=== PATIENT | male | born 1995 | race Caucasian/White ===

== ENCOUNTER 2023-08-06 23:42 | Emergency (ER) | payer OTHER, SELFPAY ==
[2023-08-06 23:57] VITALS: BP 129/74; PULSE 56; RESP 16; TEMP 36.7; O2SAT 99
[2023-08-07 00:13] VITALS: BMI 32.0
[2023-08-07 00:35] LABS: COVID-19 Test Negative (Negative); IDNOW Serial# 08D9AD1C
[2023-08-07 00:36] LABS: IDNOW Serial# 152EDE1D; Influenza A Negative (Negative); Influenza B2 Negative (Negative)
[2023-08-07 01:38] VITALS: PULSE 56; RESP 16; O2SAT 99
[2023-08-07] MEDS: Albuterol Sulfate 90 MCG 8 GM INHALER 2 PUFF INHALE (01:38)
[2023-08-07] MEDS: Benzonatate 100 MG CAPSULE 200 MG PO (01:40)
[2023-08-07] MEDS: cefuroxime axetiL 500 MG TABLET PO (01:40)
[2023-08-07 02:13] VITALS: BP 129/74; PULSE 59; RESP 18; TEMP 36.7; O2SAT 99
--- NOTE | 2023-08-16 02:37 | ED_ITS ---
HPI - URI/Sore Throat General Chief Complaint: Upper Respiratory Symptoms Stated Complaint: flu like, asthmatic? Time Seen by Provider: 08/07/23 01:16 Source: patient Mode of arrival: ambulatory Limitations: no limitations History of Present Illness HPI Narrative: Patient's history of childhood asthma complaining of cough for last 1 week getting worse in the nighttime with mucoid phlegm no fever no chills Related Data Previous Rx's Medication Instructions Recorded albuterol sulfate 90 mcg/actuation 2 puff inhalation Q4-6H PRN 08/07/23 aerosol inhaler (ProAir HFA) shortness of breath or wheezing #8.5 grams benzonatate 200 mg capsule 200 mg PO TID PRN cough #30 caps 08/07/23 cefuroxime axetil 500 mg tablet 500 mg PO BID 7 days #14 tabs 08/07/23 Allergies Allergy/AdvReac Type Severity Reaction Status Date / Time No Known Allergies Allergy Verified 08/07/23 00:08 Review of Systems Review of Systems: Yes all other systems are reviewed and are negative [facility] Past Medical History Medical History (Updated 08/16/23 @ 02:38 by Julian Soria MD) Asthma Social History Social History Advance Directives: No Advance Directives Information Provided: No Physical Exam Vital Signs: Vital Signs: Last Vital Signs Temp 98.0 F 08/07/23 02:13 Pulse 59 08/07/23 02:13 Resp 18 08/07/23 02:13 BP 129/74 08/07/23 02:13 Pulse Ox 99 08/07/23 02:13 O2 Del Method Room Air 08/07/23 02:13 BMI result Body Mass Index 32.0 Appearance: Alert. Oriented X3. No acute distress. ENT: Pharynx normal. Oral Mucosa moist Neck: Normal inspection. Neck supple. CVS: Normal heart rate and rhythm. Pulses normal. Respiratory: No respiratory distress. Equal air entry bilateral, prolonged expiration no rales Abdomen: Soft and nontender. Bowel sounds are present, no mass palpable, no CVA tenderness Skin: Skin warm and dry. Normal skin color. Normal skin turgor. Extremities: No lower extremity edema. No calf tenderness Neuro: Oriented X 3. Medications Administered Discontinued Medications Generic Name Dose Route Start Last Admin Trade Name Freq PRN Reason Stop Dose Admin Albuterol Sulfate 2 puff 08/07/23 01:30 08/07/23 01:38 Albuterol Sulfate 90 Mcg 8 Gm Inhaler INHALE 08/07/23 01:31 2 puff ONCE ONE Administration Benzonatate 200 mg 08/07/23 01:30 08/07/23 01:40 Benzonatate 100 Mg Capsule PO 08/07/23 01:31 200 mg ONCE ONE Administration Cefuroxime Axetil 500 mg 08/07/23 01:30 08/07/23 01:40 Cefuroxime Axetil 500 Mg Tablet PO 08/07/23 01:31 500 mg ONCE ONE Administration Medical Decision Making Medical Decision Making MDM Narrative: Patient's asthmatic bronchitis discharge patient home on course of prednisone, inhaler and antibiotic Differential Diagnosis Differential Diagnoses: The differential diagnosis associated with the presentation includes Asthma/bronchitis/viral Lab Data MDM Lab Attestation statement: I reviewed the patient's lab results. Labs: Lab Results 08/07/23 Range/Units 00:14 COVID-19 ([place]) Negative (Negative) COVID-19 Clin Com See Note Influenza Type A ([facility]) Negative (Negative) Influenza Type B ([facility]) Negative (Negative) Influenza A & B Note See Note Discharge Plan Discharge Clinical Impression: Bronchitis Patient Disposition: Home, Self-Care Instructions: Acute Bronchitis (ED) Additional Instructions: Take medication as prescribed Follow with PCP if not better Prescriptions: New cefuroxime axetil 500 mg tablet 500 mg PO BID 7 Days Qty: 14 0RF albuterol sulfate [ProAir HFA] 90 mcg/actuation HFA aerosol inhaler 2 puff inhalation Q4-6H PRN (Reason: shortness of breath or wheezing) Qty: 8.5 0RF benzonatate 200 mg capsule 200 mg PO TID PRN (Reason: cough) Qty: 30 0RF Interventions: ED Discharge Assessment Last Done: 08/07/23 02:13 Discharge Date/Time: 08/07/23 02:14
== END 2023-08-07 02:14 | disposition home or self-care (01) ==
PROVIDERS: Emergency Provider Internal Medicine
DX: J40 Bronchitis, not specified as acute or chronic (principal); R05.9 Cough, unspecified; Z11.52 Encounter for screening for COVID-19; Z79.899 Other long term (current) drug therapy
CPT/HCPCS: 87502; 87635; 94640; 99283; 99284